=== PATIENT | female | born 1970 | race Caucasian/White ===

== ENCOUNTER 2017-10-05 05:15 | Emergency (ER) | payer SELFPAY ==
[2017-10-05 05:26] VITALS: BP 115/76; PULSE 58; RESP 18; TEMP 98.2; O2SAT 99
--- NOTE | 2017-10-05 05:48 | C.PDOC ---
History Of Present Illness 47 year old female presents to the ED c/o painful mass to her right side of the breast for the past 2 months. Patient reports is started as a small lump and now has increased in size. Patient had a mammogram done 3 years ago which was normal. Patient denies history of primary relatives with breast CA, no trauma, fever, , injury, trauma. Time Seen by Provider: 10/05/17 05:29 Chief Complaint (Nursing): Breast Problem History Per: Patient History/Exam Limitations: no limitations Onset/Duration Of Symptoms: Days Current Symptoms Are (Timing): Still Present Recent travel outside of the [place]: No Additional History Per: Patient Past Medical History Reviewed: Historical Data, Nursing Documentation, Vital Signs Vital Signs: Last Vital Signs Temp 98.2 F 10/05/17 05:24 Pulse 58 L 10/05/17 05:24 Resp 18 10/05/17 05:24 BP 115/76 10/05/17 05:24 Pulse Ox 99 10/05/17 05:56 - Medical History PMH: No Chronic Diseases Surgical History: No Surg Hx Family History: States: Unknown Family Hx - Social History Hx Tobacco Use: No Hx Alcohol Use: No Hx Substance Use: No - Immunization History Hx Tetanus Toxoid Vaccination: No Hx Influenza Vaccination: No Hx Pneumococcal Vaccination: No Review Of Systems Constitutional: Negative for: Fever, Chills Cardiovascular: Positive for: Other (breast pain). Negative for: Palpitations Respiratory: Negative for: Cough, Shortness of Breath Skin: Negative for: Rash Neurological: Negative for: Weakness, Numbness Physical Exam - Physical Exam Appears: Non-toxic, No Acute Distress Skin: Normal Color, Warm, Dry Head: Atraumatic, Normacephalic Eye(s): bilateral: Normal Inspection Neck: Normal ROM, Supple Chest: Symmetrical, Tenderness (to right outer breast), Other (small palpable mobile mass to the right breast, also small palpable mobile mass to left breast as well non tender. No skin changes, no peau d'orange, no nipple retraction or nipple discharge, no erythema, warmth ) Cardiovascular: Rhythm Regular Respiratory: Normal Breath Sounds, No Rales, No Rhonchi, No Wheezing Extremity: Normal ROM, No Tenderness, No Swelling Neurological/Psych: Oriented x3, Normal Speech Gait: Steady ED Course And Treatment O2 Sat by Pulse Oximetry: 99 (ON RA) Pulse Ox Interpretation: Normal Progress Note: Plan: - Motrin 600 mg PO. Patient was advised to go to the clinic as a walk in today to be evaluated for for a mammogram referral for further evaluation of the symptoms. Disposition - Disposition Referrals: Non [facility] Provider, [Primary Care Provider] - Disposition Time: 06:03 Condition: STABLE Additional Instructions: Take motrin for pain Follow up in the medical clinic as a walk in today to be evaluated for for a mammogram referral Return to ER if worse Instructions: Fibrocystic Breast Changes (DC), Breast Abscess Drainage (ED) Forms: [employer] (Burkinan) Print Language: BELARUSIAN - Clinical Impression Clinical Impression: Breast mass in female - PA / [employer] / Resident Statement MD/DO has reviewed & agrees with the documentation as recorded. - Scribe Statement The provider has reviewed the documentation as recorded by the Scribe Brown Mims All medical record entries made by the Scribe were at my direction and personally dictated by me. I have reviewed the chart and agree that the record accurately reflects my personal performance of the history, physical exam, medical decision making, and the department course for this patient. I have also personally directed, reviewed, and agree with the discharge instructions and disposition.
== END 2017-10-05 06:12 | disposition home or self-care (01) ==
LOC: SUPCPDRO 05:15 → C.ER 05:15
DX: N63.0 Unspecified lump in unspecified breast (principal)